=== PATIENT | female | born 1985 | race American Indian/Alaskan Native ===

== ENCOUNTER 2019-02-12 09:00 | Inpatient (IN) | payer MEDICARE ==
[2019-02-12] MEDS ORDERED: LACTATED RINGERS 1,000 ML ONE (09:53)
[2019-02-12] MEDS ORDERED: METOCLOPRAMIDE 10 MG/2 ML INJ IV ONE (09:54)
[2019-02-12] MEDS ORDERED: BICITRA ORAL LIQD 30ML PO ONE (09:54)
[2019-02-12] MEDS ORDERED: FAMOTIDINE 20 MG/2 ML INJ IV ONE (09:54)
[2019-02-12] MEDS ORDERED: ONDANSETRON 4 MG/2 ML INJ IV PRN (09:55)
[2019-02-12] MEDS ORDERED: HYDROmorphone 1 MG/1 ML INJ IV PRN ×2 (09:55)
--- NOTE | 2019-02-12 09:57 | Anesthesia Consultation ---
Anesthesia Consult and Med Hx Date of service: 02/12/19 - Airway Anesthetic Teeth Evaluation: Good ROM Head & Neck: Adequate Mental/Hyoid Distance: Adequate Mallampati Class: Class II Intubation Access Assessment: Probably Good - Pulmonary Exam CTA: Yes - Cardiac Exam Cardiac Exam: RRR - Pre-Operative Health Status ASA Pre-Surgery Classification: ASA2 Proposed Anesthetic Plan: Spinal - Pulmonary Hx Smoking: No Hx Asthma: No Hx Respiratory Symptoms: No SOB: No COPD: No Home Oxygen Therapy: No Hx Pneumonia: No Hx Sleep Apnea: No - Cardiovascular System Hx Hypertension: No Hx Coronary Artery Disease: No Hx Heart Attack/AMI: No Hx Angina: No Hx Percutaneous Transluminal Coronary Angioplasty (PTCA): No Hx Cardia Arrhythmia: No Hx Pacemaker: No Hx Internal Defibrillator: No Hx Valvular Heart Disease: No Hx Heart Murmur: No Hx Peripheral Vascular Disease: No - Central Nervous System Hx Neuromuscular Disorder: No Hx Seizures: No CVA: No Hx Back Pain: No Hx Psychiatric Problems: No - Gastrointestinal Hx Ulcer: No Hx Gastroesophageal Reflux Disease: Yes - Endocrine Hx Renal Disease: No Hx End Stage Renal Disease: No Hx Cirrhosis: No Hx Liver Disease: No Hx Insulin Dependent Diabetes: No Hx Non-Insulin Dependent Diabetes: No Hx Thyroid Disease: No Hx Hypothyroidism: No Hx Hyperthyroidism: No - Hematic Hx Anemia: No Hx Sickle Cell Disease: No - Other Systems Hx Alcohol Use: No Hx Substance Use: No Hx Cancer: No Hx Obesity: No
--- NOTE | 2019-02-12 09:58 | Anesthesia Day of Surgery ---
Anesthesia Day of Surgery - Day of Surgery Patient Examined: Yes Patient H&P Reviewed: Yes Patient is NPO: Yes Beta Blockers: No Cardiac Clearance: No Pulmonary Clearance: No Rivas's Test: N/A
[2019-02-12] MEDS ORDERED: OXYTOCIN 20 UNIT/1000ML DRIP 20 UNITS/1,000 ML BAG IV SCH ×2 (10:00→20:00)
[2019-02-12] MEDS: LACTATED RINGERS 1,000 ML IV SCH ×2 (10:00→10:30)
[2019-02-12] MEDS ORDERED: ceFAZolin/Water 2 GM/20 ML 2 GM/20 ML SYRINGE IV NR (10:00)
[2019-02-12] MEDS ORDERED: DEXMEDETOMIDINE 200 MCG/2 ML VIAL IV ONE (10:04)
[2019-02-12 10:22] LABS: Basophils # (Auto) 0.1 K/mm3 (0.0-0.1); Basophils % (Auto) 0.6 % (0.0-1.8); Eosinophils # (Auto) 0.1 K/mm3 (0.0-0.4); Hemoglobin 10.9 gm/dl (10.1-14.3); Lymphocytes # (Auto) 2.1 K/mm3 (1.2-5.4); Lymphocytes % (Auto) 24.5 % (13.4-35.0); Mean Corpuscular HGB Conc 32 % (30-34); Mean Corpuscular Volume 82 fl (79-97); Monocytes # (Auto) 0.7 K/mm3 (0.0-0.8); Monocytes % (Auto) 8.4 % (0.0-7.3); Platelet Count 209 K/mm3 (140-440); Red Blood Count 4.14 M/mm3 (3.65-5.03); Red Cell Distribution Width 18.5 % (13.2-15.2)
--- NOTE | 2019-02-12 11:49 | History and Physical Report ---
History of Present Illness Date of examination: 02/12/19 Date of admission: 02/12/19 09:00 Chief complaint: scheduled repeat csec History of present illness: This is a 33 yo at 39 weeks here for scheduled for repeat csec. Patient has had abn quad screen seen by MFM. 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 She deisres repeat csec. Past History Past Medical History: other Past Surgical History: section (x1) Family/Genetic History: none Social history: single. denies: smoking, alcohol abuse, prescription drug abuse - Obstetrical History Expected Date of Delivery: 02/19/19 Actual Gestation: 39 Week(s) 0 Day(s) : 4 Para: 3 Hx # Term Pregnancies: 3 Number of Pregnancies: 0 Spontaneous Abortions: 0 Induced : 0 Number of Living Children: 3 Medications and Allergies Allergies Allergy/AdvReac Type Severity Reaction Status Date / Time No Known Allergies Allergy Unverified 11/08/13 02:03 Home Medications Medication Instructions Recorded Confirmed Last Taken Type Vit No.130/Iron/Folic 1 each PO QDAY 03/15/16 03/15/16 Unknown History [ Tablet] HYDROcodone/APAP 5-325 [[place] 1 each PO Q6HR PRN #30 tablet 03/16/16 Unknown Rx 5/325] Ibuprofen [Motrin] 800 mg PO Q8HR PRN #60 tablet 03/16/16 Unknown Rx Active Meds: Active Medications Hydromorphone HCl (Dilaudid) 0.5 mg IV Q5M PRN PRN Reason: BREAK Stop: 02/12/19 18:00 Hydromorphone HCl (Dilaudid) 0.5 mg IV Q4H PRN PRN Reason: breakthrough pain > 7/10 Oxytocin/Sodium Chloride (Pitocin/Ns 20 Unit/1000ml Drip) 20 units in 1,000 mls @ 0 mls/hr IV TITR JUSTIN Lactated Ringer's (Lactated Ringers) 1,000 mls @ 2,250 mls/hr IV PREOP JUSTIN Stop: 02/13/19 10:27 Last Admin: 02/12/19 10:30 Dose: 2,250 mls/hr Documented by: Cefazolin Sodium (Ancef/Sterile Water 2 Gm/20 Ml) 2 gm in 20 mls @ 80 mls/hr IV PREOP NR; Protocol Stop: 02/12/19 23:59 Ondansetron HCl (Zofran) 4 mg IV Q8H PRN PRN Reason: Nausea And Vomiting Sodium Chloride (Sodium Chloride Flush Syringe 10 Ml) 10 ml IV PRN NR Stop: 02/12/19 23:59 Review of Systems All systems: negative - Vital Signs Vital signs: Vital Signs Temp Pulse Resp BP 97.8 F 76 16 130/82 02/12/19 09:39 02/12/19 09:39 02/12/19 09:39 02/12/19 09:39 Temp Pulse Resp BP Pulse Ox 97.8 F 76 16 130/82 02/12/19 09:39 02/12/19 09:39 02/12/19 09:39 02/12/19 09:39 - Physical Exam Breasts: Positive: normal Cardiovascular: Regular rate, Normal S1 Lungs: Positive: Clear to auscultation, Normal air movement Abdomen: Positive: normal appearance, soft, normal bowel sounds. Negative: distention, tenderness, guarding Genitourinary (Female): Positive: normal external genitalia, normal perenium Vagina: Positive: normal moisture Uterus: Positive: normal size, normal contour Anus/Rectum: Positive: normal perianal skin Extremities: Positive: normal Deep Tendon Reflex Grade: Normal +2 - Obstetrical FHR: category 1 Results Result Diagrams: 02/12/19 09:30 Abnormal lab results 02/12/19 Range/Units 09:30 MCH 26 L (28-32) pg RDW 18.5 H (13.2-15.2) % [place] % (Auto) 8.4 H (0.0-7.3) % All other labs normal. Assessment and Plan A/P HD#1 scheduled repeat csec desires perm sterilization discussed r/b/a of procedure which include bleeding infection , damage to pelvic and non pelvic and non pelvic organs risk of anesthesia, blood clot, risk of hysterectomy and consents signed and will proceed with repeat csec and tubal ligation b/l
[2019-02-12] MEDS ORDERED: WATER FOR IRRIG STERILE 1,500 ML BOTTLE IR ONE (12:22)
[2019-02-12] MEDS ORDERED: SODIUM CHLORIDE 0.9% IRR 1,500 ML BOTTLE IR ONE (12:22)
[2019-02-12] MEDS ORDERED: ONDANSETRON 4 MG/2 ML INJ ONE (12:40)
[2019-02-12] MEDS ORDERED: KETOROLAC 30 MG/1 ML INJ ONE (13:05)
--- NOTE | 2019-02-12 13:09 | Procedure Note ---
OB Delivery Note - Delivery Date of Delivery: 02/12/19 Surgeon: ERIC PALUMBO Estimated blood loss: other (400cc) - Section Preop diagnosis: repeat Postop diagnosis: same section procedure: section Disposition: PACU Complications: none Narrative: see op note - Infant A at 1 minute: 8 at 5 minutes: 9 Gender: Female (5 pounds 5 oz)
--- NOTE | 2019-02-12 13:12 | Operative Report ---
Operative Report Operative Report: DATE OF OPERATION: 02/12/19 PREOPERATIVE DIAGNOSES: 1. Prior section. 2. Declines vaginal after . 3. A 39 weeks gestation. POSTOPERATIVE DIAGNOSES: 1. Prior section. 2. Declines vaginal after . 3. A 39 weeks gestation. OPERATION PERFORMED: Repeat low transverse . SURGEON: Madonna Addison MD BARK GRINDER: jairon putnam ANESTHESIA: Spinal. ESTIMATED BLOOD LOSS: 400 mL. FINDINGS: A viable female weighing 5 pounds 5 oz Apgars 8 and 9. Normal uterus and b/l adnexa normal COMPLICATIONS: None. DISPOSITION: Stable. DESCRIPTION OF OPERATION: After informed consent was obtained, the patient was brought back to the operative suite where adequate spinal anesthesia was obtained. The patient was then placed in the dorsal supine position and prepped and draped in the sterile fashion. A repeat Pfannenstiel skin incision was made with a blade and carried down through the subcutaneous tissues to the fascia, which was extended in the transverse fascia with Penaloza scissors. The fascial incision was then dissected off the rectus muscles both bluntly and sharply. The rectus muscle was in the midline. The peritoneum was entered bluntly. The peritoneal incision was then extended both superiorly and inferiorly with good visualization of the underlying bowel and bladder. The bladder blade was placed, and the vesicouterine fascia was incised to create a bladder flap in a low transverse position. This was developed digitally. A low transverse uterine incision was made with the blade and carried down through the layers of the uterus until membranes bulged through the incision. The uterine incision was then extended digitally. Hand was placed inside the pelvis, and the head was brought up out of the pelvis and delivered atraumatically with gentle fundal pressure. Prior to the head being delivered, actually through the skin, the sound of the baby starting to cry was noted. After the head was delivered, the mouth and nares were aggressively bulb suctioned. Remainder of the infant was delivered, and the was passed to the awaiting nursing staff for additional care. Cord was doubly clamped and cut and cord blood was obtained. The placenta was then manually extracted, and the uterus was exteriorized. The uterus was cleaned of remaining clot. The uterine incision was readily identified and closed in two layers, first one with running locking followed by second imbricating layer of 0 Vicryl. The vesicouterine fascia was then reapproximated with 2-0 Vicryl. The adnexa were within normal limits. The uterus was placed back inside the pelvis. Copious irrigation and inspection of the incision was satisfactory. The peritoneum was then closed with 2-0 Vicryl in a running fashion. The fascia was closed with 1 Vicryl from one angle to the next. Subcutaneous tissues were copiously irrigated, and final bleeders were cauterized. The incision was then reapproximated with benson needle.
--- NOTE | 2019-02-12 13:25 | Post Anesthesia Evaluation ---
- Post Anesthesia Evaluation Patient Participated: Yes Airway Patent: Yes Stable Respiratory Function: Yes Nausea/Vomiting: No Temp > 96.8F: Yes Pain Manageable: Yes Adequeate Hydration: Yes Anesthesia Complications: No Block Receding Appropriately: Yes Patient on Ventilator: No
[2019-02-12] MEDS ORDERED: NALOXONE 0.4 MG/1 ML INJ IV PRN (19:39)
[2019-02-12] MEDS ORDERED: oxyCODONE /ACETAMINOPHEN 5-325MG TAB PO PRN (19:39)
[2019-02-12] MEDS ORDERED: WITCH HAZEL/ GLYCERIN PAD TP PRN (19:39)
[2019-02-12] MEDS ORDERED: ACETAMINOPHEN 325 MG TAB PO PRN (19:39)
[2019-02-12] MEDS ORDERED: MAGNESIUM HYDROXIDE (MOM) ORAL LIQD UDC PO PRN (19:39)
[2019-02-12] MEDS ORDERED: LANOLIN/ZINC/DIMETHICONE (LANSINOH) 7 GM TP PRN (19:39)
[2019-02-12] MEDS ORDERED: MORPHINE 2 MG/1 ML INJ IV PRN (19:39)
[2019-02-12] MEDS: IBUPROFEN 800 MG TAB PO PRN (21:04)
[2019-02-12] MEDS ORDERED: D5W/LACTATED RINGERS 1,000 ML IV SCH (23:45)
[2019-02-13 00:37] LABS: Hematocrit 28.9 % (30.3-42.9); Hemoglobin 9.4 gm/dl (10.1-14.3)
[2019-02-13] MEDS: HYDROcodone/ACETAMINOPHEN 5-325 MG TAB PO PRN ×2 (05:41→20:34)
--- NOTE | 2019-02-13 07:43 | Progress Note ---
Assessment and Plan A: POD#1 s/p repeat section, anemia P: Routine postop care Subjective - Subjective Date of service: 02/13/19 Principal diagnosis: s/p repeat section Interval history: Pt without complaints. + flatus. Voiding without difficulty. Patient reports: appetite normal, voiding normally, flatus, ambulating normally, no bowel movement, no nauseated Hertel: doing well Objective - Vital Signs Latest vital signs: Vital Signs Temp Pulse Resp BP BP Pulse Ox 02/13/19 06:08 97.9 F 72 20 145/93 99 02/13/19 00:34 98.3 F 91 H 20 122/71 96 02/12/19 21:25 98.2 F 78 20 132/88 97 02/12/19 14:20 97.5 F L 52 L 18 120/71 100 02/12/19 14:15 48 L 18 117/68 100 02/12/19 14:00 55 L 18 121/68 100 02/12/19 13:45 50 L 18 116/71 100 02/12/19 13:30 57 L 20 119/73 100 02/12/19 13:25 57 L 22 116/72 100 02/12/19 13:20 60 22 110/67 100 02/12/19 09:39 97.8 F 76 16 130/82 Intake and Output 02/12/19 02/13/19 02/13/19 22:59 06:59 14:59 Intake Total 240 240 Output Total 700 1000 Balance -460 -760 Intake: Oral 240 240 Output: Urine 700 1000 Indwelling Catheter 700 500 Void 500 Other: Total, Intake Amount 240 240 Total, Output Amount 700 500 # Voids Void 1 - Exam Breasts: Present: deferred Cardiovascular: Present: Regular rate Lungs: Present: Clear to auscultation Abdomen: Present: soft, normal bowel sounds Uterus: Present: fundal height at umbilicus Extremities: Present: edema (trace) Incision: Present: dressed - Labs Labs: Abnormal lab results 02/12/19 02/13/19 Range/Units 09:30 00:15 Hgb 9.4 L (10.1-14.3) gm/dl Hct 28.9 L (30.3-42.9) % MCH 26 L (28-32) pg RDW 18.5 H (13.2-15.2) % [place] % (Auto) 8.4 H (0.0-7.3) %
[2019-02-13] MEDS: FERROUS SULFATE 325 MG TAB PO SCH (10:41)
[2019-02-13] MEDS ORDERED: FLU VACC QUAD 2019-20 (3 YR UP)/PF 60 MCG/0.5 ML SYRINGE IM ONE (12:00)
[2019-02-14] MEDS: HYDROcodone/ACETAMINOPHEN 5-325 MG TAB PO PRN (04:44)
[2019-02-14] MEDS ORDERED: TETANUS,DIPH,PERTUSS(ACELL) VACCINE 0.5 ML SYRINGE IM ONE (06:00)
--- NOTE | 2019-02-14 08:11 | Progress Note ---
Assessment and Plan - Patient Problems (1) Insufficient care Current Visit: No Status: Acute Plan to address problem: will initiate meds monitor blood pressure consider discharge later today Subjective - Subjective Date of service: 02/14/19 Principal diagnosis: s/p repeat section Interval history: Patient without complaints. Pain well controlled. Tolerating regular diet. Blood pressures slightly elevated yesterday. Patient reports: appetite normal, voiding normally, pain well controlled Russell: doing well Objective - Vital Signs Latest vital signs: Vital Signs Temp Pulse Resp BP BP Pulse Ox 02/14/19 01:52 98.0 F 72 18 141/82 98 02/13/19 17:30 98.1 F 97 H 18 160/88 02/13/19 12:34 98.4 F 82 18 149/92 Intake and Output 02/13/19 02/14/19 02/14/19 22:59 06:59 14:59 Intake Total 480 360 Balance 480 360 Intake: Oral 480 Intake, Free Water 360 Other: Total, Intake Amount 480 # Voids Void 2 - Exam Abdomen: Present: normal appearance
--- NOTE | 2019-02-14 08:13 | Discharge Summary ---
Providers - Providers Date of Admission: 02/12/19 09:00 Date of discharge: 02/14/19 Attending physician: SUMAYA BENITO Primary care physician: SUMAYA BENITO Hospitalization Reason for admission: section Delivery: Procedure: section Discharge diagnosis: IUP at term delivered Hospital course: Patient admitted for repeat . See op note. Elevation in blood pressures controlled with meds Condition at discharge: Good Disposition: DC-01 TO HOME OR SELFCARE - Discharge Diagnoses (1) Insufficient care Status: Acute Plan - Discharge Medications Prescriptions: Docusate Sodium [Colace] 100 mg PO BID PRN #60 capsule PRN Reason: Constipation Ferrous Sulfate [Feosol 325 MG tab] 325 mg PO BID #60 tablet Labetalol [Labetalol 200mg TAB] 200 mg PO BID #60 tablet Ibuprofen [Motrin] 800 mg PO Q8HR PRN #30 tablet PRN Reason: Pain, Moderate (4-6) oxyCODONE /ACETAMINOPHEN [Percocet 5/325] 1 tab PO Q6HR PRN #40 tablet PRN Reason: Pain - Provider Discharge Summary Activity: no sex for 6 weeks, no heavy lifting 4 weeks, no strenuous exercise Diet: routine Instructions: routine Additional instructions: [] Smoking cessation referral if applicable(refer to patient education folder for contact #) [] Refer to [employer] Booklet Call your doctor immediately for: * Fever > 100.5 * Heavy vaginal bleeding ( >1 pad per hour) * Severe persistent headache * Shortness of breath * Reddened, hot, painful area to leg or breast * Drainage or odor from incision. * Keep incision clean and dry at all times and follow doctor's instructions regarding bathing/showering schedule followup in 2 weeks - Follow up plan
[2019-02-14] MEDS: FERROUS SULFATE 325 MG TAB PO SCH (10:23)
[2019-02-14] MEDS: IBUPROFEN 800 MG TAB PO PRN (10:23)
[2019-02-14 16:32] VITALS: BP 135/79
== END 2019-02-14 18:00 | disposition home or self-care (01) | DRG 787 ==
LOC: APU 09:00 → OB 15:19
PROVIDERS: ADMIT Obstetrics & Gynecology; ATTEND Obstetrics & Gynecology
PROC: 10D00Z1 Extraction of Products of Conception, Low, Open Approach (ICD-10-PCS; principal; 2019-02-12)
PROC: 3E0234Z Introduction of Serum, Toxoid and Vaccine into Muscle, Percutaneous Approach (ICD-10-PCS; 2019-02-14)
DX: O34.211 Maternal care for low transverse scar from previous cesarean delivery (principal); D62 Acute posthemorrhagic anemia; Z3A.39 39 weeks gestation of pregnancy; Z37.0 Single live birth; Z23 Encounter for immunization; K21.9 Gastro-esophageal reflux disease without esophagitis; O90.81 Anemia of the puerperium; O99.344 Other mental disorders complicating childbirth; F31.9 Bipolar disorder, unspecified; F90.9 Attention-deficit hyperactivity disorder, unspecified type; F20.9 Schizophrenia, unspecified; O99.62 Diseases of the digestive system complicating childbirth
CPT/HCPCS: 36415; 82962; 85014; 85018; 85025; 86592; 86850; 86900; 86901; 90471; 90686; 90715; G0378; C1765; G0008; J0690; J1885; J2405; J2590; J2765; J3490; J7120; J7121